=== PATIENT | female | born 1985 | race Caucasian/White ===

== ENCOUNTER 2019-12-14 20:10 | Emergency (ER) | payer OTHER ==
[~2019-12-14] VITALS: Ht 160 cm; Wt 54.5 kg
[2019-12-14 20:17] VITALS: BP 134/75
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
[2019-12-15] MEDS ORDERED: NO HOME MEDS (15:16)
== END 2019-12-14 20:41 | disposition left against medical advice (07) ==
LOC: ER 20:10
DX: F41.9 Anxiety disorder, unspecified (principal); Z53.21 Procedure and treatment not carried out due to patient leaving prior to being seen by health care provider

== ENCOUNTER 2019-12-15 00:25 | Emergency (ER) | payer BC ==
[~2019-12-15] VITALS: Ht 167.6 cm; Wt 59.1 kg
[2019-12-15 00:26] VITALS: BP 141/88
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
--- NOTE | 2019-12-15 00:36 | NUR ---
pt came back from the bathroom and refused to sign her belongings sheet.
[2019-12-15 00:52] LABS: CLARITY,URINE CLEAR (Clear); COLOR,URINE YELLOW (Yellow); GLUCOSE, URINE NEGATIVE (Neg); KETONES,URINE NEGATIVE (Neg); LEUKOCYTE ESTERASE ,URINE NEGATIVE (Neg); NITRITES, URINE NEGATIVE (Neg); OCCULT BLOOD,URINE TRACE-INTACT (Neg); PROTEIN,URINE NEGATIVE (Neg); UROBILINOGEN,URINE 0.2 E.U/dL (0.2-1.0)
[2019-12-15 00:54] LABS: HEMOGLOBIN 13.3 g/dl (12.0-16.0); MEAN CORPUSCULAR HEMOGLOBIN 30.2 PG (27.0-31.0); NEUTROPHILS # (AUTO) 10.2 X10'3 (1.8-7.7); WHITE BLOOD COUNT 11.8 X10'3 (4.5-11.0)
[2019-12-15 00:55] LABS: UA COLLECTION TYPE VOIDED
[2019-12-15 00:56] LABS: URINE HCG NEGATIVE (NEG)
[2019-12-15 00:58] LABS: BASOPHILS % (AUTO) 0.3 % (0-1); EOSINOPHILS % (AUTO) 0.1 % (0-6); LYMPHOCYTES # (AUTO) 1.1 X10'3 (1.1-4.8); LYMPHOCYTES % (AUTO) 9.4 % (21-51); MEAN CORPUSCULAR HGB CONC 35.1 g/dL (33.0-36.5); MEAN CORPUSCULAR VOLUME 86.1 FL (78-98); MEAN PLATELET VOLUME 7.4 FL (7.4-10.4); MONOCYTES # (AUTO) 0.5 X10'3 (0-0.9); MONOCYTES % (AUTO) 4.2 % (2-12); PLATELET COUNT 307 X10'3 (140-440); RED BLOOD COUNT 4.42 X10'6 (4.20-5.60); RED CELL DISTRIBUTION WIDTH 12.7 % (11.5-14.5)
[2019-12-15 01:03] LABS: MUCUS STRANDS MODERATE /LPF (Neg)
[2019-12-15 01:04] LABS: BACTERIA,URINE FEW /HPF (Neg); RBC,URINE 0-2 /HPF (0-2); SQUAMOUS EPITHELIAL CELL,UR NONE SEEN /LPF (FEW); WBC,URINE 0-4 /HPF (0-4)
[2019-12-15] MEDS ORDERED: LORazepam 2 mg/ml vial IM ONE (01:05)
[2019-12-15] MEDS ORDERED: OLANZapine **IM** 10 mg inj. IM ONE (01:05)
[2019-12-15] MEDS ORDERED: diphenhydrAMINE 50 mg/ml inj IM ONE (01:05)
[2019-12-15 01:06] LABS: URINE AMPHETAMINE SCREEN NEGATIVE (Neg); URINE BARBITUATE SCREEN NEGATIVE (Neg); URINE BENZODIAZEPINES SCREEN NEGATIVE (Neg); URINE CANNABINOID SCREEN NEGATIVE (Neg); URINE COCAINE SCREEN NEGATIVE (Neg); URINE METHADONE SCREEN NEGATIVE (Neg); URINE OPIATE SCREEN NEGATIVE (Neg); URINE PHENCYCLIDINE SCREEN NEGATIVE (Neg)
[2019-12-15 01:07] LABS: ALANINE AMINOTRANSFERASE 17 U/L (12-78); ALBUMIN 4.2 G/DL (3.4-5.0); ALBUMIN/GLOBULIN RATIO 1.2 (1.1-1.5); ALKALINE PHOSPHATASE 67 IU/L (46-116); ANION GAP 10 (8-16); ASPARTATE AMINO TRANSFERASE 20 U/L (10-37); BILIRUBIN,TOTAL 0.8 MG/DL (0.1-1.0); BLOOD UREA NITROGEN 12 MG/DL (7-18); BUN/CREATININE RATIO 12.6 (6.6-38.0); CHLORIDE 107 MMOL/L (99-107); CREATININE 0.95 MG/DL (0.40-0.90); GLUCOSE 120 MG/DL (70-104); POTASSIUM 3.3 MMOL/L (3.5-5.1); SODIUM 140 MMOL/L (135-145); TOTAL CARBON DIOXIDE 22.8 MMOL/L (24-32); TOTAL PROTEIN 7.7 G/DL (6.4-8.2); eGFR 68 ML/MIN
[2019-12-15 01:15] LABS: ETHANOL < 0.010 GM/DL (0.0-0.010)
--- NOTE | 2019-12-15 01:58 | NUR ---
unable to complete any assessments requiring pt response. Pt refuses to interact with staff at this time.
--- NOTE | 2019-12-15 04:24 | NUR ---
instructed sitter to not awaken the patient for vital signs. Pt is asleep.
--- NOTE | 2019-12-15 07:09 | NUR ---
PT ASKED THIS NURSE TO CALL HER "LET HIM KNOW I AM HERE." SHE THEN ASKED THIS NURSE TO "SAY THE LORD'S NAME." SHE THEN CALLED OVER, NICHOLAS KEEN AND ASKED HER TO DO THE SAME. PT LAYING ON HER BACK WITH HER EYES OPEN.
--- NOTE | 2019-12-15 07:28 | NUR ---
PT HAS NOT GIVEN THIS NURSE HER HUSBANDS PHONE NUMBER SO HE HAS NOT BEEN CALLED. PT ASKED IF HER "CAN MY COME HERE?" SHE CONTINUES TO LAY ON HER BACK WITH HER EYES OPEN.
--- NOTE | 2019-12-15 07:32 | NUR ---
UNABLE TO COMPLETE INTERVENTIONS AT THIS TIME DUE TO PT'S MENTAL STATUS
--- NOTE | 2019-12-15 09:18 | NUR ---
PT HAS BEEN LAYING ON HER BED MOVING FROM SIDE TO SIDE WITH HER EYES OPEN. SHE REMAINS CALM AND COOPERATIVE. SHE WILL NOT ENGAGE IN CONVERSATION.
--- NOTE | 2019-12-15 11:03 | NUR ---
PT UNCOOPERATIVE WITH QUESTIONS PERTAINING TO INTERVENTIONS. HER FOCUS IS ON GOD. SHE WILL NOT ANSWER QUESTIONS AT THIS TIME.
--- NOTE | 2019-12-15 12:38 | NUR ---
RELIEVING RN FOR LUNCH, PT IS RESTING QUIETLY ON GURNEY, HAS BEEN ACCEPTED UPSTAIRS, WAITING TO BE TRANSPORTED, BEHAVIORAL HEALTH IS AWARE AND WILL BE DOWN SHORTLY
[2019-12-15] MEDS ORDERED: NO HOME MEDS (15:16)
== END 2019-12-15 12:53 | disposition home or self-care (01) ==
LOC: ER 00:25
DX: F23 Brief psychotic disorder (principal)
CPT/HCPCS: 36415; 80053; 80305; 80320; 81001; 81025; 84443; 85025; 99285

== ENCOUNTER 2019-12-15 12:32 | Inpatient (IN) | payer BC ==
[~2019-12-15] VITALS: Ht 160 cm; Wt 37.4 kg
[2019-12-15] MEDS ORDERED: magnesium hydroxide 30ml (MOM) UD suspension PO PRN (13:05)
[2019-12-15] MEDS ORDERED: loperamide 2mg capsule PO PRN (13:05)
[2019-12-15] MEDS ORDERED: acetaminophen 325mg tablet PO PRN ×2 (13:05)
[2019-12-15] MEDS ORDERED: mag hydrox/Alum hydrox/simeth 30ml oral suspension PO PRN (13:05)
[2019-12-15] MEDS ORDERED: NO HOME MEDS (15:16)
--- NOTE | 2019-12-15 16:15 | NUR ---
Admission Note: Pt received from [facility] ED at 1254. Pt arrived on the unit basically catatonic and needed two female staff to assist her with cleaning up in the shower from menstral bleeding. Pt limp and uncooperative. Pt then refused to answer questions, but did nod agreement for nurse to speak with her "earthly " pt kept saying "Melvin" . . . "Melvin is my " She then stopped talking and just laid in bed, unresponsive. Pt hx obtained from . 8 years and no children. According to Delgado, pt has had 2 panic attacks in the past, the first one being in 2011. She was brought to the hospital, was not admitted and dc'd home without medications. The next one was in 2016 and they "prayed through it" This is the third episode and states that he fears she has had a "mental breakdown" this time. He reports extreme paranoia and conspiratory themes including stating that he must work for the government and he can't be trusted. Each panic attack and this episode have all been related to her feeling like she has lost her salvation. No family h/o mental health disorders. No alcohol or drug use. Pt has not ever been in treatment for or taken medications for mental health. Pt appears to be selectively or intermittently catatonic: occasionally she will get up walk around and talk a bit and then return to bed. Pt thought content is all religiously preoccupied and she states, "I just want to get cleaned up and go home to be with Melvin"
--- NOTE | 2019-12-15 16:34 | NUR ---
: Delgado: [phone]
[2019-12-15 19:28] VITALS: BP 92/55
[2019-12-15] MEDS: LORazepam 1 MG tablet PO PRN ×2 (21:05→21:55)
[2019-12-15] MEDS ORDERED: QUEtiapine 25mg tablet PO PRN (23:25)
[2019-12-15] MEDS ORDERED: traZODone 50mg tablet PO PRN (23:25)
--- NOTE | 2019-12-16 03:39 | NUR ---
Nursing Progress Note: Legal hold: 5150 Client on involuntary status for DTS. Report received from Carmina CHAIREZ, with use of SBAR. Why are they here: 34-year-old female patient with no diagnosed psychiatric history presents the emergency department via military police officer for a mental health evaluation. Per military police officer, the patient's called 911 due to the patient's ongoing "erratic behavior and nonsense statements." informed the military police officer that earlier this morning she left her keys in the car while she was at [employer] in which she then ran away on foot. He states that she was witnessed running in and out of traffic and trying to run away from people. Per military police officer, the patient had ran all the way from [employer] to [employer] on foot prior to being brought into the emergency department. The military police officer states that the believes the patient has an undiagnosed psychiatric condition. She does see a psychiatrist however he denies any known psychological disorder. Assessment What has happened this shift: Patient observed laying in bed awake at the beginning of shift. Patient refused to answer physical and MH questions. She provided brief comments throughout the shift to report writer; "I'm afraid," ""Who are you? Where am I? I don't know who I am," "I see a lot and hear a lot." Patient provided PRN Ativan 1mg PO x2 for increased anxiousness. Patient briefly went into group room to watch music videos and began singing along. She remains on LOS for elopement risk and door checking a few times this shift, while stating, "You aren't my people; I need to go." She was able to be redirected with an explanation that she's in the hospital and POC staff reminding names and positions. PRN Trazodone 50mg provided for insomnia with positive effect. S/I, H/I: Unable to assess A/VH: +A/VH Sleep: Refer to sleep assessment; Provided PRN Trazodone ADL's: Independent Group attendance: No groups this shift Were meds taken: Yes Any med S/E: None observed or reported Mental Status Exam Appearance: Disheveled, green unit scrubs and non skid socks Eye contact: Good Behavior: Isolative Speech: Minimal, clear and steady rate/rhythm Mood: Labile Affect: Anxious Thought process: Poverty of thought Thought Content: Leaving the unit Cognition: Disoriented; "Who are you? Where am I? I don't know who I am." Insight: Poor Judgment: Poor Interventions PRN's used: Ativan 1mg x2, Trazodone 50mg Therapeutic interventions: 1:1 assessment, active listening, therapeutic conversation, medication administration/education/monitoring, behavior monitoring and intervention; reality orientation, redirection, positive reinforcement, reassurance pt is safe, LOS. Restraints/seclusion/emergency medication: N/A Justification of Continued Inpatient Treatment: Pt is not stable, she is labile. Continued therapeutic support and medication management and monitoring needed to provide stabilization, prevent decompensation, and improve coping mechanisms decreasing risk to patient and re-admittance.
[2019-12-16 07:33] VITALS: BP 104/77
[2019-12-16] MEDS: LORazepam 1 MG tablet PO PRN ×2 (07:59→20:29)
[2019-12-16 08:23] LABS: HEMOGLOBIN A1C 4.8 % (4.5-6.2)
[2019-12-16 08:36] LABS: CHOL/HDL RATIO 1.8 (0.00-4.99); CHOLESTEROL 141 MG/DL (0-200); HDL CHOLESTEROL 80 MG/DL (35-60); LDL CHOLESTEROL 50 MG/DL (50-100); TRIGLYCERIDES 40 MG/DL (20-135)
[2019-12-16 09:06] LABS: BASOPHILS % (AUTO) 0.7 % (0-1); EOSINOPHILS # (AUTO) 0.1 X10'3 (0-0.9); HEMATOCRIT 35.5 % (35.0-45.0); HEMOGLOBIN 12.3 g/dl (12.0-16.0); LYMPHOCYTES # (AUTO) 1.6 X10'3 (1.1-4.8); LYMPHOCYTES % (AUTO) 30.3 % (21-51); MEAN CORPUSCULAR HEMOGLOBIN 29.8 PG (27.0-31.0); MEAN CORPUSCULAR HGB CONC 34.6 g/dL (33.0-36.5); MEAN CORPUSCULAR VOLUME 86.1 FL (78-98); MEAN PLATELET VOLUME 7.7 FL (7.4-10.4); MONOCYTES # (AUTO) 0.4 X10'3 (0-0.9); MONOCYTES % (AUTO) 7.3 % (2-12); NEUTROPHILS # (AUTO) 3.1 X10'3 (1.8-7.7); NEUTROPHILS % (AUTO) 60.7 % (42-75); PLATELET COUNT 264 X10'3 (140-440); RED BLOOD COUNT 4.12 X10'6 (4.20-5.60); RED CELL DISTRIBUTION WIDTH 12.8 % (11.5-14.5); WHITE BLOOD COUNT 5.1 X10'3 (4.5-11.0)
[2019-12-16 09:14] LABS: ALANINE AMINOTRANSFERASE 15 U/L (12-78); ALBUMIN 3.7 G/DL (3.4-5.0); ALBUMIN/GLOBULIN RATIO 1.2 (1.1-1.5); ALKALINE PHOSPHATASE 58 IU/L (46-116); ANION GAP 11 (8-16); ASPARTATE AMINO TRANSFERASE 15 U/L (10-37); BILIRUBIN,TOTAL 1.2 MG/DL (0.1-1.0); BLOOD UREA NITROGEN 15 MG/DL (7-18); BUN/CREATININE RATIO 18.1 (6.6-38.0); CALCIUM 9.1 MG/DL (8.5-10.1); CHLORIDE 105 MMOL/L (99-107); CREATININE 0.83 MG/DL (0.40-0.90); GLUCOSE 95 MG/DL (70-104); POTASSIUM 3.5 MMOL/L (3.5-5.1); SODIUM 139 MMOL/L (135-145); TOTAL CARBON DIOXIDE 22.6 MMOL/L (24-32); TOTAL PROTEIN 6.8 G/DL (6.4-8.2); eGFR 79 ML/MIN
--- NOTE | 2019-12-16 14:39 | NUR ---
Nursing Progress Note: Legal hold: 5150 Client on involuntary status for DTS. Report received from CONTRERAS Navarro with use of SBAR. Why are they here: 34-year-old female patient with no diagnosed psychiatric history presents the emergency department via police liaison officer for a mental health evaluation. Per police liaison officer, the patient's called 911 due to the patient's ongoing "erratic behavior and nonsense statements." informed the police liaison officer that earlier this morning she left her keys in the car while she was at [employer] in which she then ran away on foot. He states that she was witnessed running in and out of traffic and trying to run away from people. Per police liaison officer, the patient had ran all the way from [employer] to [employer] on foot prior to being brought into the emergency department. The police liaison officer states that the believes the patient has an undiagnosed psychiatric condition. She does see a psychiatrist however he denies any known psychological disorder. Assessment What has happened this shift: Pt is on LOS after attempting to elope from the hospital numerous times yesterday. Today she is smiling and reports "I feel much better." She spent the morning talking to her in the early AM then sleeping. She is not eating much. She had her initial visit with the doctor today. S/I, H/I: Denies A/VH: Denies Sleep: Slept in AM ADL's: Independent Group attendance: did not attend groups Were Meds taken: Yes Any med S/E: None observed or reported Mental Status Exam Appearance: Green scrubs Eye contact: Good Behavior: Resting in bed Speech: Clear, normal rate and rhythm Mood: Labile Affect: Calm Thought process: Poverty of thought Thought Content: Wants to return home Cognition: A/O x2 Insight: Poor Judgment: Poor Interventions PRN's used: Ativan 1mg x2, Trazodone 50mg Therapeutic interventions: 1:1 assessment, active listening, therapeutic conversation, medication administration/education/monitoring, redirection, positive reinforcement, reassurance pt is safe, LOS. Restraints/seclusion/emergency medication: N/A Justification of Continued Inpatient Treatment: Pt is not stable, she is labile. Continued therapeutic support and medication management and monitoring needed to provide stabilization, prevent decompensation, and improve coping mechanisms decreasing risk to patient and re-admittance.
[2019-12-16 19:25] VITALS: BP 109/73
[2019-12-16] MEDS: OLANZAPINE 5 MG TABLET PO SCH (20:29)
--- NOTE | 2019-12-16 23:44 | NUR ---
Nursing Progress Note: Legal hold: 5150 Client on involuntary status for DTS. Report received from Carmina CHAIREZ, with use of SBAR. Why are they here: 34-year-old female patient with no diagnosed psychiatric history presents the emergency department via police patrol lieutenant for a mental health evaluation. Per police patrol lieutenant, the patient's called 911 due to the patient's ongoing "erratic behavior and nonsense statements." informed the police patrol lieutenant that earlier this morning she left her keys in the car while she was at [employer] in which she then ran away on foot. He states that she was witnessed running in and out of traffic and trying to run away from people. Per police patrol lieutenant, the patient had ran all the way from [place] to [employer] on foot prior to being brought into the emergency department. The police patrol lieutenant states that the believes the patient has an undiagnosed psychiatric condition. She does see a psychiatrist however he denies any known psychological disorder. Assessment What has happened this shift: Patient laying in bed asleep at the beginning of shift. Shortly after came out of her room and began socializing, laughing and watching TV with peers in the group room. Patient is pleasant and cooperative with care; compliant with medication. Patient began Zyprexa 5mg this shift; no ASE observed or reported at this time. PRN Ativan 1mg provided for slight anxiety with positive effect. Patient helped clean up and remove clutter in her room this shift. She denies SI, HI, A/VH this shift and does not appear internally preoccupied this shift. Patient is no longer on LOS for elopement risk and has made no attempts to door check/leave unit this shift. Patient is in bed, asleep, at this time; will continue to monitor. S/I, H/I: Denies A/VH: Denies Sleep: Refer to sleep assessment ADL's: Independent Group attendance: No groups this shift Were meds taken: Yes Any med S/E: None observed or reported Mental Status Exam Appearance: Clean, neat and wearing appropriate personal attire. Eye contact: Good Behavior: Socializing, cooperative Speech: Clear, audible, regular rate/rhythm Mood: Happy Affect: Animated Thought process: Linear Thought Content: Wants to go home to Cognition: A/O x2 Insight: Poor Judgment: Poor Interventions PRN's used: Ativan 1mg Therapeutic interventions: 1:1 assessment, active listening, therapeutic conversation, medication administration/education/monitoring, behavior monitoring and intervention; reality orientation, redirection, positive reinforcement, reassurance pt is safe, LOS. Restraints/seclusion/emergency medication: N/A Justification of Continued Inpatient Treatment: Pt is not stable, she is labile. Continued therapeutic support and medication management and monitoring needed to provide stabilization, prevent decompensation, and improve coping mechanisms decreasing risk to patient and re-admittance.
[2019-12-17 07:15] VITALS: BP 115/60
--- NOTE | 2019-12-17 18:13 | NUR ---
Nursing Progress Note: Legal hold: 5150 Client on involuntary status for DTS. Report received from Dayton CHAIREZ with use of SBAR. Why are they here: 34-year-old female patient with no diagnosed psychiatric history presents the emergency department via police communications operator for a mental health evaluation. Per police communications operator, the patient's called 911 due to the patient's ongoing "erratic behavior and nonsense statements." informed the police communications operator that earlier this morning she left her keys in the car while she was at [employer] in which she then ran away on foot. He states that she was witnessed running in and out of traffic and trying to run away from people. Per police communications operator, the patient had ran all the way from [employer] to [employer] on foot prior to being brought into the emergency department. The police communications operator states that the believes the patient has an undiagnosed psychiatric condition. She does see a psychiatrist however he denies any known psychological disorder. Assessment What has happened this shift: Received pt asleep in her bed. Pt awoke for breakfast and was interactive for brief periods of time with peers or staff. Pt appropriate upon approach by staff. Pt stated she felt like she was getting great care here and that she felt 100% better. Pt denied depression and denied suicidal thoughts. Pt denied anxiety and denies a/v hallucinations. No evidence of delusional thought process today. Pt ate her meals and rested in her room reading her Bible most of the day, napping on and off. While meeting with Dr. Talamantes, pt asked him to ask staff to facilitate a conference call with her which was completed by this nurse. Conversation lasted about 20 minutes. They appeared connected and supportive of each other. Toward the end, she did make an interesting statement that she just wanted to be with her heavenly , Melvin. Almost evidence of a continued advent delusion, but she quickly recovered and talked about just needing to spend more time in prayer when she leaves here than what she had been doing. We discussed importance of recognizing signs of pending panic attacks in the future and to preemptively take medications or she a therapist. Both were in agreement. S/I, H/I: Denies A/VH: Denies Sleep: napped on and off. ADL's: Independent Group attendance: did not attend groups Were Meds taken: Yes Any med S/E: None observed or reported Mental Status Exam Appearance: Green scrubs Eye contact: Good Behavior: Resting in bed Speech: Clear, normal rate and rhythm Mood: Labile Affect: Calm Thought process: Poverty of thought Thought Content: Wants to return home Cognition: A/O x2 Insight: Poor Judgment: Poor Interventions PRN's used: Therapeutic interventions: 1:1 assessment, active listening, therapeutic conversation, medication administration/education/monitoring, redirection, positive reinforcement, reassurance pt is safe, LOS. Restraints/seclusion/emergency medication: N/A Justification of Continued Inpatient Treatment: Pt is not stable, she is labile. Continued therapeutic support and medication management and monitoring needed to provide stabilization, prevent decompensation, and improve coping mechanisms decreasing risk to patient and re-admittance.
[2019-12-17 19:30] VITALS: BP 121/75
[2019-12-17] MEDS: LORazepam 1 MG tablet PO PRN (20:28)
[2019-12-17] MEDS: OLANZAPINE 5 MG TABLET PO SCH (20:28)
--- NOTE | 2019-12-18 03:22 | NUR ---
Nursing Progress Note: Legal hold: 5150 Client on involuntary status for DTS. Report received from Carmina CHAIREZ, with use of SBAR. Why are they here: 34-year-old female patient with no diagnosed psychiatric history presents the emergency department via police sergeant precinct for a mental health evaluation. Per police sergeant precinct, the patient's called 911 due to the patient's ongoing "erratic behavior and nonsense statements." informed the police sergeant precinct that earlier this morning she left her keys in the car while she was at [employer] in which she then ran away on foot. He states that she was witnessed running in and out of traffic and trying to run away from people. Per police sergeant precinct, the patient had ran all the way from [facility] to [email or web address] on foot prior to being brought into the emergency department. The police sergeant precinct states that the believes the patient has an undiagnosed psychiatric condition. She does see a psychiatrist however he denies any known psychological disorder. Assessment What has happened this shift: Patient in bed asleep at the beginning of shift. Later out on the unit socializing, walking the unit and watching TV with peers. Pleasant and cooperative with all care; compliant with medication. PRN Ativan provided with HS medication for mild anxiety. Patient denies SI, HI, A/VH and does not appear to be responding to internal stimuli. No delusional thought content provided this shift. Showered this shift before retiring to bed. Per MD note TSH level and may Zyprexa may be increased to 10mg. S/I, H/I: Denies A/VH: Denies Sleep: Refer to sleep assessment ADL's: Independent Group attendance: No groups this shift Were meds taken: Yes Any med S/E: None observed or reported Mental Status Exam Appearance: Showered, neat and wearing appropriate personal attire. Eye contact: Good Behavior: Socializing, cooperative Speech: Clear, audible, regular rate/rhythm Mood: Happy Affect: Euthymic Thought process: Linear Thought Content: Appreciation for staff Cognition: A/O Insight: Good Judgment: Good Interventions PRN's used: Ativan 1mg Therapeutic interventions: 1:1 assessment, active listening, therapeutic conversation, medication administration/education/monitoring, behavior monitoring and intervention; reality orientation, redirection, positive reinforcement, reassurance pt is safe. Restraints/seclusion/emergency medication: N/A Justification of Continued Inpatient Treatment: Pt is not stable, she is labile. Continued therapeutic support and medication management and monitoring needed to provide stabilization, prevent decompensation, and improve coping mechanisms decreasing risk to patient and re-admittance.
[2019-12-18 08:00] VITALS: BP 132/57
--- NOTE | 2019-12-18 08:29 | NUR ---
PSYCHOSOCIAL ASSESSMENT Tennille is a 34 y/o female. She was initially placed on 5150 by [employer] for grave disability. [employer] was called due to Tennille acting erractically. She did not know where she was and wanted to be left alone to speak with Melvin. She had run through traffic without regard to her safety, was wearing inappropriate clothing for the cold weather, and had not been eating to sleeping for multiple days. Tennille stated to tag writer, "I think I had a mental breakdown..I was hearing things, seeing things, feeling things...I think it was panic". She reported feeling paranoid and felt like "my family that was around me wasn't my family, I was scared". She reported now looking back to was acting irrationally and it was quite out of character for her. Tennille reported she is feeling safe here at [facility] and identified it as a therapeutic environment, "I feel peace and calm here". She denied any history of mental health issues, however, she reported she has felt panic before and her , Delgado, has been able to help her through that, but not this time. Tennille reported she and her moved to [place] in [address] attended [facility] for a year and did not complete the program due to finances. 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 Tennille reported she plans on returning home upon discharge. She does not currently have a primary care doctor and will need one for follow up appointments and medication refills. JACOB Bell Addendum: 12/18/19 at 0831 by Loreta COOPER Amended: Links added.
--- NOTE | 2019-12-18 14:08 | NUR ---
Nursing Progress Note: Client is voluntary Report received from Dayton LOPEZ with use of SBAR. Why are they here: 34-year-old female patient with no diagnosed psychiatric history presents the emergency department via police matron for a mental health evaluation. Per police matron, the patient's called 911 due to the patient's ongoing "erratic behavior and nonsense statements." informed the police matron that earlier this morning she left her keys in the car while she was at [employer] in which she then ran away on foot. He states that she was witnessed running in and out of traffic and trying to run away from people. Per police matron, the patient had ran all the way from [employer] to [employer] on foot prior to being brought into the emergency department. The police matron states that the believes the patient has an undiagnosed psychiatric condition. She does see a psychiatrist however he denies any known psychological disorder. Assessment What has happened this shift: Pt denied depression, anxiety, SI/HI/AH/VH this morning. She is A/O X 4. Pt states that she has not heard voices or seen anything unusual since coming here. Pt described the episode that brought her here as a "panic attack." Pt expressed gratitude for having a supportive and friends. Pt is signed in voluntary today. S/I, H/I: Pt denies A/VH: Pt denies Sleep: Pt slept 5.75 hours last night per noc shift report. ADL's: Independent Group attendance: No groups this shift Were meds taken: Yes Any med S/E: None noted or reported. Mental Status Exam Appearance: Appropriate, clean, neat young woman wearing glasses. Eye contact: Good Behavior: Pleasant, calm, cooperative. Speech: Clear, audible, regular rate/rhythm Mood: Euthymic Affect: Euthymic Thought process: Linear Thought Content: Pt is thankful for supportive and friends, pt will stay if the doctor feels she should stay longer. Cognition: A/O X 4 Insight: Fair to Good Judgment: Good Interventions PRN's used: None Therapeutic interventions: 1:1 assessment, active listening, therapeutic conversation, medication administration/education/monitoring, positive reinforcement, Q 15 minute safety checks. Restraints/seclusion/emergency medication: N/A Justification of Continued Inpatient Treatment: Continued therapeutic support and medication management and monitoring needed to provide stabilization, prevent decompensation, and improve coping mechanisms decreasing risk to patient and re-admittance.
[2019-12-18 19:00] VITALS: BP 124/89
[2019-12-18] MEDS: OLANZAPINE 5 MG TABLET PO SCH (21:26)
--- NOTE | 2019-12-19 05:30 | NUR ---
Nursing Progress Note: Client is Voluntary Report received from JOHN Grewal with use of SBAR. Why are they here: 34-year-old female patient with no diagnosed psychiatric history presents the emergency department via police booking officer for a mental health evaluation. Per police booking officer, the patient's called 911 due to the patient's ongoing "erratic behavior and nonsense statements." informed the police booking officer that earlier this morning she left her keys in the car while she was at [employer] in which she then ran away on foot. He states that she was witnessed running in and out of traffic and trying to run away from people. Per police booking officer, the patient had ran all the way from [place] to [place] on foot prior to being brought into the emergency department. The police booking officer states that the believes the patient has an undiagnosed psychiatric condition. She does see a psychiatrist however he denies any known psychological disorder. Assessment What has happened this shift: Patient is awake and well oriented. W/D, presents as clean and well dressed with hair in place. Patient smiles often. She denies S/I or H/I. Patient is happy about going home soon to her . Patient tells this chart writer she went without sleeping for a couple of days worrying about the [place] Virus. She believes she had a mental break but feels much improved now. 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 S/I, H/I: Pt denies. A/VH: Pt denies. Sleep: Slept well. ADL's: Independent. Group attendance: No groups this shift. Were meds taken: Yes, patient is medication compliant. Any med S/E: None noted or reported. Mental Status Exam Appearance: Well dressed and clean. Eye contact: Good. Behavior: Pleasant, calm, cooperative. Speech: Clear, audible, regular rate/rhythm. Mood: Euthymic. Affect: Euthymic. Thought process: Linear. Thought Content: Talks about going home, concerned about other patients. Cognition: A/O X 4. Insight: Good. Judgment: Good. Interventions PRN's used: None Therapeutic interventions: 1:1 assessment, active listening, therapeutic conversation, medication administration/education/monitoring, positive reinforcement, Q 15 minute safety checks. Restraints/seclusion/emergency medication: N/A Justification of Continued Inpatient Treatment: Continued therapeutic support and medication management and monitoring needed to provide stabilization, prevent decompensation, and improve coping mechanisms decreasing risk to patient and re-admittance.
[2019-12-19 08:00] VITALS: BP 126/100
--- NOTE | 2019-12-19 10:20 | NUR ---
DISCHARGE PLANNING Completed and faxed a referral to [facility] for follow up care. Tennille assisted with completing the referral. She plans on following up with Dr Kervin Brown for counseling through [facility]. Discussed with both she and her , Delgado, the usefulness in identifying triggers for Tennille. Provided her with a safety plan document which she started to fill out and plans on completing once she is home with her . JACOB Bell
[2019-12-19] MEDS ORDERED: OLAN5TAB26 PO (14:37)
--- NOTE | 2019-12-19 15:29 | NUR ---
Nursing Discharge Note. Pt discharged from [facility] at 1500, and escorted to front of hospital where she was picked up by her to drive her home. Pt in euthymic mood with bright affect and denies SI/HI, and A/VH. Pt has been improving since admission and was in no acute physical or emotional distress. Pt's valuables and belongings were inventoried and returned to her. She understands her F/U instructions and did not need nicotine replacement.
== END 2019-12-19 15:00 | disposition home or self-care (01) | DRG 885 ==
LOC: ADULT MH 12:55
PROVIDERS: ADMIT Psychiatry & Neurology Psychiatry; ATTEND Psychiatry & Neurology Psychiatry
DX: F31.2 Bipolar disorder, current episode manic severe with psychotic features (principal); F41.0 Panic disorder [episodic paroxysmal anxiety]
CPT/HCPCS: 36415; 80053; 80061; 83036; 84443; 85025; 87081

== ENCOUNTER 2023-09-21 09:28 | Emergency (ER) | payer BC, SELFPAY ==
[~2023-09-21] VITALS: Ht 160 cm; Wt 49.0 kg
[~2023-09-21 09:28] MED LIST: OLAN5TAB75 PO
[2023-09-21 09:44] VITALS: BP 139/103; PULSE 86; TEMP 97.6; O2SAT 99
[2023-09-21 10:28] VITALS: RESP 18
[2023-09-21] MEDS ORDERED: ZIPR40CA14 PO (13:22)
[2023-09-21] MEDS ORDERED: LORA-269 PO (13:22)
== END 2023-09-21 13:57 | disposition home or self-care (01) ==
LOC: ER 09:28
DX: F22 Delusional disorders (principal); F31.9 Bipolar disorder, unspecified; Z79.899 Other long term (current) drug therapy
CPT/HCPCS: 99283

== ENCOUNTER 2023-09-29 18:35 | Emergency (ER) | payer BC ==
[~2023-09-29] VITALS: Ht 160 cm; Wt 49.6 kg
[~2023-09-29 18:35] MED LIST changes: +LORA-269 PO; +ZIPR40CA14 PO
[2023-09-29 20:50] LABS: BASOPHILS % (AUTO) 0.4 % (0-1); EOSINOPHILS # (AUTO) 0.1 X10'3 (0-0.9); EOSINOPHILS % (AUTO) 0.8 % (0-6); HEMATOCRIT 39.4 % (35.0-45.0); HEMOGLOBIN 13.9 g/dl (12.0-16.0); LYMPHOCYTES % (AUTO) 28.4 % (21-51); MEAN CORPUSCULAR HEMOGLOBIN 30.1 PG (27.0-31.0); MEAN CORPUSCULAR HGB CONC 35.4 g/dL (33.0-36.5); MEAN CORPUSCULAR VOLUME 85.3 FL (78-98); MEAN PLATELET VOLUME 7.2 FL (7.4-10.4); MONOCYTES # (AUTO) 0.5 X10'3 (0-0.9); MONOCYTES % (AUTO) 6.7 % (2-12); NEUTROPHILS # (AUTO) 4.5 X10'3 (1.8-7.7); NEUTROPHILS % (AUTO) 63.7 % (42-75); PLATELET COUNT 337 X10'3 (140-440); RED BLOOD COUNT 4.62 X10'6 (4.20-5.60); RED CELL DISTRIBUTION WIDTH 12.4 % (11.5-14.5)
[2023-09-29 21:06] LABS: ANION GAP 9 (8-16); BLOOD UREA NITROGEN 14 MG/DL (7-18); BUN/CREATININE RATIO 17.1 (10.0-20.0); CALCIUM 9.2 MG/DL (8.5-10.1); CHLORIDE 106 MMOL/L (99-107); CREATININE 0.82 MG/DL (0.40-0.90); GLUCOSE 109 MG/DL (70-104); POTASSIUM 3.9 MMOL/L (3.5-5.1); SODIUM 139 MMOL/L (135-145); TOTAL CARBON DIOXIDE 24.5 MMOL/L (24-32); eCRCL 74 ML/MIN; eGFR 78 ML/MIN
[2023-09-29 21:07] LABS: ALANINE AMINOTRANSFERASE 19 U/L (12-78); ALBUMIN 4.1 G/DL (3.4-5.0); ALBUMIN/GLOBULIN RATIO 1.2 (1.1-1.5); ALKALINE PHOSPHATASE 52 IU/L (46-116); ASPARTATE AMINO TRANSFERASE 14 U/L (10-37); BILIRUBIN,TOTAL 0.9 MG/DL (0.1-1.0); ETHANOL < 10 MG/DL (<10); TOTAL PROTEIN 7.5 G/DL (6.4-8.2)
[2023-09-29 21:59] LABS: BILIRUBIN,URINE NEGATIVE (Neg); CLARITY,URINE CLOUDY (Clear); COLOR,URINE YELLOW (Yellow); GLUCOSE, URINE NEGATIVE (Neg); KETONES,URINE TRACE mg/dl (Neg); LEUKOCYTE ESTERASE ,URINE NEGATIVE (Neg); NITRITES, URINE NEGATIVE (Neg); OCCULT BLOOD,URINE NEGATIVE (Neg); PROTEIN,URINE NEGATIVE (Neg); UROBILINOGEN,URINE 0.2 E.U/dL (0.2-1.0)
[2023-09-29 22:00] LABS: URINE HCG NEGATIVE (NEG)
[2023-09-29 22:02] LABS: UA COLLECTION TYPE VOIDED
[2023-09-29 22:07] LABS: MUCUS STRANDS MANY /LPF (Neg); SQUAMOUS EPITHELIAL CELL,UR MANY /LPF (FEW)
[2023-09-29 22:08] LABS: RBC,URINE 0-2 /HPF (0-2); WBC,URINE 0-4 /HPF (0-4)
[2023-09-29 22:09] LABS: AMORPHOUS PHOSPHATES 4+; BACTERIA,URINE FEW /HPF (Neg)
[2023-09-29 22:10] LABS: TRANSITIONAL EPI CELLS,URINE FEW /HPF
[2023-09-29 22:11] LABS: CAL OXALATE CRYSTALS 1+ /HPF (NEGATIVE)
[2023-09-29 22:14] LABS: URINE AMPHETAMINE SCREEN NEGATIVE (Neg); URINE BARBITUATE SCREEN NEGATIVE (Neg); URINE BENZODIAZEPINES SCREEN NEGATIVE (Neg); URINE CANNABINOID SCREEN NEGATIVE (Neg); URINE COCAINE SCREEN NEGATIVE (Neg); URINE METHADONE SCREEN NEGATIVE (Neg); URINE OPIATE SCREEN NEGATIVE (Neg); URINE PHENCYCLIDINE SCREEN NEGATIVE (Neg)
[2023-09-30] MEDS ORDERED: LORA-269 PO ×2 (00:16→00:31)
[2023-09-30] MEDS ORDERED: ZIPR40CA2 PO (00:31)
[2023-09-30] MEDS ORDERED: LORazepam 1 MG tablet PO PRN (00:40)
[2023-09-30] MEDS ORDERED: ziprasidone 20mg capsule PO SCH (08:00)
[2023-09-30] MEDS: ziprasidone 20mg capsule PO SCH ×2 (08:20→20:31)
[2023-09-30 19:44] VITALS: PULSE 109
[2023-10-01 07:01] LABS: THYROID STIMULATING HORMONE 2.48 ulU/ml (0.34-4.50)
[2023-10-01] MEDS: ziprasidone 20mg capsule PO SCH (08:08)
[2023-10-01 11:02] VITALS: BP 114/87; RESP 16; TEMP 98.3; O2SAT 100
== END 2023-10-01 11:06 | disposition home or self-care (01) ==
LOC: ER 18:36
DX: F79 Unspecified intellectual disabilities (principal); Z20.822 Contact with and (suspected) exposure to COVID-19
CPT/HCPCS: 36415; 80053; 80305; 80320; 81001; 81025; 84443; 85025; 87811; 99285